=== PATIENT | female | born 1990 | race Caucasian/White ===

== ENCOUNTER 2017-02-26 10:51 | Emergency (ER) | payer OTHER ==
[2017-02-26 11:46] LABS: BILIRUBIN NEGATIVE (NEGATIVE); BLOOD 1+ Ery/uL (NEGATIVE); CLARITY CLEAR (CLEAR); COLOR YELLOW (YELLOW); GLUCOSE (U) NORMAL (NORMAL); KETONE (U) NEGATIVE (NEGATIVE); LEUKOCYTES 1+ Leu/uL (NEGATIVE); NITRITE NEGATIVE (NEGATIVE); PROTEIN NEGATIVE (NEGATIVE); SPECIFIC GRAVITY 1.025 (1.001-1.030); UROBILINOGEN 0.2 mg/dL (0.2-1.0)
[2017-02-26 11:49] LABS: BASOPHIL 0.3 % (0-2); EOSINOPHIL 6.3 % (0-5); HCT 39.8 % (37.0-47.0); HGB 14.1 g/dl (12.5-16.0); MCH 31.3 pg (25.0-31.0); MCHC 35.4 g/dL (32.0-36.0); MCV 88.2 fL (78.0-100.0); MONOCYTE 6.3 % (0-12); MPV 10.2 fL (6.0-9.5); NEUTROPHIL 68.1 % (41-80); PLT 252 K/uL (150-400); RBC 4.51 M/uL (4.20-5.40); RDW 13.1 % (11.5-14.0); WBC 7.8 K/uL (4.0-10.5)
[2017-02-26 11:53] LABS: ALBUMIN 4.4 g/dL (3.5-5.0); BILIRUBIN - TOTAL 0.5 mg/dL (0.1-1.0); CREATININE 0.8 mg/dL (0.5-1.0); GLOBULIN (CALCULATION) 2.6 g/dL (2.2-4.2); POTASSIUM 3.7 mmol/L (3.5-5.1)
[2017-02-26 12:02] LABS: BACTERIA 3+; MUCOUS TRACE; SQUAMOUS EPITHELIAL CELLS RARE; URINARY RBC RARE
== END 2017-02-26 12:52 | disposition home or self-care (01) ==
LOC: FER 10:51
PROVIDERS: Nurse Practitioner
DX: R07.89 Other chest pain (principal); N39.0 Urinary tract infection, site not specified; R06.02 Shortness of breath; Z88.2 Allergy status to sulfonamides
CPT/HCPCS: 36415; 71020; 80053; 81001; 82550; 85025; 93005; J1885; J2405